=== PATIENT | female | born 1980 | race Caucasian/White ===

== ENCOUNTER 2017-06-30 21:50 | Emergency (ER) | payer BC ==
[2017-06-30] MEDS ORDERED: Adacel (T-DAP) 0.5 ML VIAL ONE (22:47)
--- NOTE | 2017-06-30 23:30 | CT ---
CT MAXILLOFACIAL NONCONTRAST: History: 37-year-old female status post-acute blunt trauma to the left eye with laceration due to being struck with a softball. FINDINGS: The upper cervical spine, from the craniocervical junction to C5 level, are intact. The TMJs, mandibl e, maxilla, pterygoid plates, orbits, and the acosta of the paranasal sinuses are intact. There is tot al opacification of the left maxillary sinus. There is approximately 50% opacification of the right m axillary sinus by severe polypoid mucosal thickening at its floor. There is no intraorbital hematoma, edema, or gas. There are no air fluid levels in the paranasal sinuses. Most of the bilateral ethmoid septa are absent. The bilateral uncinate processes are absent. The nasal cavity is clear. The fronta l, ethmoid, and sphenoid sinuses are clear. Bilateral tympanomastoid cavities are clear. There is rig ht periorbital soft tissue swelling, especially left infraorbital region, but there is no discrete he matoma in the deep soft tissues of the face. The globes are intact. IMPRESSION: 1. Acute, traumatic, superficial soft tissue contusions of the left malar and left periorbital region s. 2. No fracture. 3. Chronic bilateral maxillary sinus mucosal disease, including total opacification of the left maxil mica sinus. 4. Status post functional endoscopic sinus surgery (FESS). POS: [facility]
== END 2017-06-30 23:20 | disposition home or self-care (01) ==
LOC: SCSER 21:50
DX: S01.112A Laceration without foreign body of left eyelid and periocular area, initial encounter (principal); Z79.899 Other long term (current) drug therapy; W21.07XA Struck by softball, initial encounter; Y93.64 Activity, baseball; Y92.39 Other specified sports and athletic area as the place of occurrence of the external cause; Y99.8 Other external cause status
CPT/HCPCS: 12013; 70486; 90471; 90715

== ENCOUNTER 2020-11-22 10:12 | Day surgery (SDC) | payer BC ==
[2020-11-21 10:55] VITALS: BMI 28.1
[2020-11-22] MEDS ORDERED: Levofloxacin 500 mg/D5W 100 ml Premix Bag ONE (12:24)
[2020-11-22] MEDS ORDERED: Midazolam HCl 2 mg/2 ml Vial ONE ×2 (14:04→14:09)
[2020-11-22] MEDS ORDERED: Fentanyl 100 MCG/2 ML VIAL ONE (14:04)
[2020-11-22] MEDS ORDERED: Rocuronium Bromide 10 MG/ML (10ML VIAL) ONE (14:21)
[2020-11-22] MEDS ORDERED: Lidocaine 1% PF 5 ML VIAL ONE (14:21)
[2020-11-22] MEDS ORDERED: Ondansetron PF 4 MG/2 ML Vial ONE (14:21)
[2020-11-22] MEDS ORDERED: Dexamethasone 20 MG/5 ML VIAL ONE (14:21)
[2020-11-22] MEDS ORDERED: Glycopyrrolate 0.2 MG/ML 5 ML SYRINGE ONE (14:21)
[2020-11-22] MEDS ORDERED: Ketorolac Tromethamine 30 MG/ML VIAL ONE (14:21)
[2020-11-22] MEDS ORDERED: PROPOFOL 200 MG/20 ML VIAL ONE (14:21)
[2020-11-22] MEDS ORDERED: Iothalamate Meglumine 60% 30 ML VIAL FS ONE (14:29)
[2020-11-22] MEDS ORDERED: Phenazopyridine HCl 100 MG TAB ONE (16:25)
[2020-11-22] MEDS ORDERED: Oxybutynin 5 MG TAB ONE (16:25)
== END 2020-11-22 16:55 | disposition home or self-care (01) ==
LOC: SDC 10:12
PROVIDERS: ATTEND Urology
PROC: 0TC38ZZ Extirpation of Matter from Right Kidney Pelvis, Via Natural or Artificial Opening Endoscopic (ICD-10-PCS; principal; 2020-11-22)
PROC: 0T768DZ Dilation of Right Ureter with Intraluminal Device, Via Natural or Artificial Opening Endoscopic (ICD-10-PCS; principal; 2020-11-22)
DX: N20.0 Calculus of kidney (principal); G43.909 Migraine, unspecified, not intractable, without status migrainosus; Z88.5 Allergy status to narcotic agent; Z79.2 Long term (current) use of antibiotics; Z98.890 Other specified postprocedural states; Z79.899 Other long term (current) drug therapy
CPT/HCPCS: 74018; 74420; 82365; 88300; C2617; J1100; J1885; J1956; J2250; J2405; J2704; J3010

== ENCOUNTER 2020-11-29 08:50 | Outpatient (CLI) | payer BC | END 2020-11-29 08:51 | disposition home or self-care (01) | LOC: RAD 08:50 | PROVIDERS: ATTEND Urology | DX: N20.0 Calculus of kidney (principal) | CPT/HCPCS: 74018 ==

== ENCOUNTER 2020-12-15 16:33 | Outpatient (CLI) | payer BC ==
[2020-12-15 21:08] LABS: Bilirubin Neg (Negative); Blood, Urine 10 (Negative); Clarity Clear (Clear); Glucose, Urine (Dipstick) Normal (Negative); Ketone, Urine Negative (Negative); Leukocyte Negative (Negative); Nitrite Negative (Negative); Protein, Urine (Dipstick) Negative (Neg-Trace); Specific Gravity, Urine 1.025 (1.002-1.036); Urobilinogen Normal mg/dL (Less than 2)
[2020-12-15 21:12] LABS: Hemoglobin 12.6 g/dL (12.0-15.5); Mean Corpuscular HGB CONC 32.6 g/dL (32.0-36.0); Mean Corpuscular Hemoglobin 31.8 pg (27.0-33.0); Mean Corpuscular Volume 97.7 fl (81.6-98.3); Mean Platelet Volume 10.5 fl (7.4-10.4); Platelet Count 304 10x3/uL (150-450); RBC Distribution Width 12.5 % (11.5-14.5); Red Blood Cell (RBC) Count 3.96 10x6/uL (3.90-5.03); White Blood Cell (WBC) Count 6.2 10x3/uL (3.5-10.5)
[2020-12-15 21:13] LABS: INR-International Normal Ratio 0.9; Prothrombin Time 9.8 sec (9.5-12.1)
[2020-12-15 21:14] LABS: Anion Gap 16 mmol/L (10-20); BUN (Urea Nitrogen) 15 mg/dL (7.0-18.7); Calc. Creatinine Clearance 0 mL/min (70-130); Carbon Dioxide 24 mmol/L (22-29); Chloride 104 mmol/L (98-107); Potassium 3.8 mmol/L (3.5-5.1); Sodium 140 mmol/L (136-145)
[2020-12-15 21:15] LABS: Calcium 9.6 mg/dL (7.8-10.44); Glucose 71 mg/dL (70-105)
[2020-12-15 21:17] LABS: Bacteria/HPF 1+ HPF (None Seen); Calcium Oxalate Crystals 1+ HPF (None Seen); Mucous/LPF 1+ LPF (<2+); RBC/HPF 0-3 HPF (0-3); Squamous Epithelial 0-3 HPF (0-3); WBC/HPF 0-3 HPF (0-3)
[2020-12-16 21:37] LABS: SARS-CoV-2 PCR by NAA Not Detected (NotDetected)
== END 2020-12-15 16:34 | disposition home or self-care (01) ==
LOC: LABBT 16:33
PROVIDERS: ATTEND Urology
DX: Z01.812 Encounter for preprocedural laboratory examination (principal); N20.0 Calculus of kidney; Z20.822 Contact with and (suspected) exposure to COVID-19
CPT/HCPCS: 80048; 81001; 85027; 85610; 85730; 87086; U0003; U0005

== ENCOUNTER 2020-12-20 06:20 | Day surgery (SDC) | payer BC ==
[2020-12-15 13:32] VITALS: BMI 28.3
[2020-12-20] MEDS ORDERED: Levofloxacin 500 mg/D5W 100 ml Premix Bag ONE (06:50)
[2020-12-20] MEDS ORDERED: Iothalamate Meglumine 60% 30 ML VIAL FS ONE (07:18)
[2020-12-20] MEDS ORDERED: Midazolam HCl 2 mg/2 ml Vial ONE (07:26)
[2020-12-20] MEDS ORDERED: Fentanyl 100 MCG/2 ML VIAL ONE (08:18)
[2020-12-20] MEDS ORDERED: Famotidine/PF 20 mg/2ml Vial ONE (08:18)
[2020-12-20] MEDS ORDERED: Meperidine HCl/PF 25 MG/ML VIAL ONE (08:18)
[2020-12-20] MEDS ORDERED: SUGAMMADEX SODIUM 200 MG/2 ML VIAL ONE (08:27)
[2020-12-20] MEDS ORDERED: Rocuronium Bromide 10 MG/ML (10ML VIAL) ONE (08:36)
[2020-12-20] MEDS ORDERED: Metoclopramide HCl 10 MG/2 ML VIAL ONE (08:36)
[2020-12-20] MEDS ORDERED: PROPOFOL 200 MG/20 ML VIAL ONE (08:36)
[2020-12-20] MEDS ORDERED: Lidocaine 1% PF 5 ML VIAL ONE (08:36)
[2020-12-20] MEDS ORDERED: Ondansetron PF 4 MG/2 ML Vial ONE (08:36)
[2020-12-20] MEDS ORDERED: Dexamethasone 20 MG/5 ML VIAL ONE (08:36)
[2020-12-20] MEDS ORDERED: PHENYLEPHRINE-NS 100 MCG/ML 10 ML SYRINGE ONE (08:36)
[2020-12-20] MEDS ORDERED: Phenazopyridine HCl 100 MG TAB ONE (09:53)
[2020-12-20] MEDS ORDERED: Oxybutynin 5 MG TAB ONE (09:53)
[2020-12-20] MEDS ORDERED: Promethazine HCl 25 MG/ML VIAL ONE (10:15)
[2020-12-20] MEDS ORDERED: traMADol HCl 50 MG TAB ONE (12:15)
== END 2020-12-20 12:38 | disposition home or self-care (01) ==
LOC: SDC 06:20
PROVIDERS: ATTEND Urology
PROC: 0T778DZ Dilation of Left Ureter with Intraluminal Device, Via Natural or Artificial Opening Endoscopic (ICD-10-PCS; principal; 2020-12-20)
PROC: 0TC48ZZ Extirpation of Matter from Left Kidney Pelvis, Via Natural or Artificial Opening Endoscopic (ICD-10-PCS; principal; 2020-12-20)
DX: N20.0 Calculus of kidney (principal); G43.909 Migraine, unspecified, not intractable, without status migrainosus; K57.30 Diverticulosis of large intestine without perforation or abscess without bleeding; D25.9 Leiomyoma of uterus, unspecified; N28.1 Cyst of kidney, acquired; Z79.899 Other long term (current) drug therapy; Z88.5 Allergy status to narcotic agent
CPT/HCPCS: 74018; 74420; 82365; 88300; C2617; J1100; J1956; J2175; J2250; J2405; J2550; J2704; J2765; J3010; S0028

== ENCOUNTER 2020-12-27 13:14 | Outpatient (CLI) | payer BC | END 2020-12-27 13:15 | disposition home or self-care (01) | LOC: RAD 13:14 | PROVIDERS: ATTEND Family Medicine | DX: N20.0 Calculus of kidney (principal); N28.89 Other specified disorders of kidney and ureter; Z96.0 Presence of urogenital implants | CPT/HCPCS: 74018 ==